=== PATIENT | female | born 1975 | race African-American/Black ===

== ENCOUNTER → 2024-11-28 | Day surgery (SDC) | payer OTHER ==
[~2024-11-28] MED LIST: AMLODIPINE BESY10 MG PO; LACTATED RINGER'S 1,000 ML ONE; LIDOCAINE HCL 2% LOCAL INJ 5 ML SDV VIAL INJ ONE; LOSARTAN-HCTZ1 EAC2 PO; METFORMIN HCL500 MG PO; MIDAZOLAM HCL 2 MG/2 ML VIAL ONE; PRAVASTATIN SOD20 MG PO; PROPOFOL IV EMULSION 10 MG/ML 20 ML VIAL ONE; VIT D2 PO
[2024-11-28 10:08] VITALS: TEMP 98.2
[2024-11-28 10:30] VITALS: BP 136/81; PULSE 66; RESP 18; O2SAT 99
== END | disposition home or self-care (01) ==
LOC: OR 08:42
PROVIDERS: ATTEND Internal Medicine Gastroenterology
DX: Z12.11 Encounter for screening for malignant neoplasm of colon (principal); K57.30 Diverticulosis of large intestine without perforation or abscess without bleeding; K59.00 Constipation, unspecified; K64.8 Other hemorrhoids; G47.33 Obstructive sleep apnea (adult) (pediatric); I10 Essential (primary) hypertension; E11.9 Type 2 diabetes mellitus without complications; E78.5 Hyperlipidemia, unspecified; I45.10 Unspecified right bundle-branch block; J45.909 Unspecified asthma, uncomplicated; Z01.810 Encounter for preprocedural cardiovascular examination; Z79.84 Long term (current) use of oral hypoglycemic drugs; Z79.899 Other long term (current) drug therapy; Z87.898 Personal history of other specified conditions; Z87.01 Personal history of pneumonia (recurrent)
CPT/HCPCS: 36415; 45378; 82948; 93005; J2003; J2250; J2704; J7121